=== PATIENT | female | born 1990 | race Caucasian/White ===

== ENCOUNTER 2023-11-06 08:58 | Outpatient (CLI) | payer OTHER ==
--- NOTE | 2023-11-06 16:06 | Ultrasound Report ---
PROCEDURE: Pelvic w/Transvaginal INDICATIONS: MENORRHAGIA TECHNIQUE: Real-time scanning was performed of the pelvic organs, with image documentation. Additional endovagi nal scanning was necessary due to incomplete visualization of the adnexal and endometrial structures by transabdominal scanning. COMPARISON: None. FINDINGS: Uterus: Uterus is anteverted and normal in size at 9.9 x 5.0 x 6.3 cm. The myometrium is heterogene ous. The endometrium measures 22.2 mm in combined thickness. Ovaries: The right ovary measures 1.5 x 3.3 x 3.2 cm, with a calculated ovarian volume of 8.0 cc. T he left ovary measures 3.2 x 3.4 x 3.2 cm, with a calculated ovarian volume of 19.0 cc. The ovaries have a normal sonographic appearance. There is a 2.7 cm simple cyst in the left ovary. Less than 12 follicles can be seen in each ovary. No adnexal masses are seen. No cystic lesions measuring greater than 3 cm. Other: No pathologic free abdominal or pelvic fluid. IMPRESSION: 1. Endometrium is thickened. Differential diagnoses are endometrial hyperplasia and endometrial carci noma. Recommend a short-term follow-up ultrasound in 6-12 weeks. Consider endometrial sampling if cli nically indicated. 2. A 2.7 cm simple cyst in the left ovary. Reviewed by: Rosalba Morales MD on 11/06/2023 4:05 PM PDT Approved by: Rosalba Morales MD on 11/06/2023 4:05 PM PDT Station ID: [id number]
== END 2023-11-06 08:59 | disposition home or self-care (01) ==
LOC: DI 08:58
PROVIDERS: ATTEND Nurse Practitioner
DX: R93.89 Abnormal findings on diagnostic imaging of other specified body structures (principal); N83.292 Other ovarian cyst, left side; N92.4 Excessive bleeding in the premenopausal period